=== PATIENT | female | born 1990 | race Caucasian/White ===

== ENCOUNTER 2020-06-26 16:20 | Emergency (ER) | payer OTHER, SELFPAY ==
[2020-06-26 16:36] VITALS: BP 168/93; PULSE 80; RESP 18; TEMP 36.8; O2SAT 100; BMI 25.6
== END 2020-06-26 19:51 | disposition left against medical advice (07) ==
PROVIDERS: Emergency Provider Emergency Medicine; PCP Internal Medicine Medical Oncology
DX: R07.9 Chest pain, unspecified (principal)
CPT/HCPCS: 99281; 99282

== ENCOUNTER 2020-10-26 11:02 | Outpatient (REF) | payer OTHER, SELFPAY ==
[2020-10-26 11:51] LABS: MANUAL DIFF FLAG NO
[2020-10-26 12:02] LABS: Basophils Percent Auto 0.2 % (0-2); Eosinophils Absolute Auto 0.3 X10*3/uL (0.0-0.4); Eosinophils Percent Auto 4.9 % (0-4); Hematocrit 42.3 % (37-47); Hemoglobin 13.9 g/dl (12.0-16.0); Imm Gran Abs Auto 0.01 X10*3/uL (0.00-0.03); Imm Gran Pct Auto 0.2 % (0.0-0.4); Lymphocytes Absolute Auto 2.1 X10*3/uL (1.2-4.9); Lymphocytes Percent Auto 33.9 % (20-40); Mean Corpuscular HGB Conc 32.9 g/dl (31.0-35.0); Mean Corpuscular Hemoglobin 28.6 pg (27.0-33.0); Mean Platelet Volume 10.7 fL (9.4-12.3); Monocytes Absolute Auto 0.4 X10*3/uL (0.1-1.2); Neutrophils Absolute Auto 3.4 X10*3/uL (2.0-8.3); Neutrophils Percent Auto 53.8 % (45-73); Platelet Count 289 X10*3/uL (160-400); Red Blood Count 4.86 X10*6/uL (4.20-5.50); Red Cell Distribution Width 12.9 % (11.0-16.0); White Blood Count 6.3 X10*3/uL (4.8-10.8)
[2020-10-26 12:07] LABS: Alanine Aminotransferase 16 U/L (0-31); Albumin Level 4.1 g/dL (3.5-5.0); Alkaline Phosphatase 50 U/L (39-117); Anion Gap 12 (12-20); Aspartate Amino Transferase 18 U/L (5-31); Bilirubin Total 0.5 mg/dL (0.0-1.0); Blood Urea Nitrogen 11 mg/dL (9-16); Calcium 9.6 mg/dL (8.4-10.2); Carbon Dioxide 25 mmol/L (22-29); Chloride 109 mmol/L (96-108); Cholesterol 223 mg/dL; Estimated Glomerular Filt Rate > 60; Glucose Fasting 91 mg/dL (60-99); HDL Cholesterol 46 mg/dL; LDL Cholesterol Calculated 160 mg/dl; Potassium 5.1 mmol/L (3.3-5.1); Sodium 141 mmol/L (135-145); Total Protein 6.7 g/dL (6.5-8.0); Triglycerides 85 mg/dL
== END 2020-10-26 11:03 | disposition home or self-care (01) ==
LOC: HO.LAB 11:02
PROVIDERS: PCP Internal Medicine Medical Oncology; Visit Provider Internal Medicine Medical Oncology
DX: Z00.00 Encounter for general adult medical examination without abnormal findings (principal); E78.00 Pure hypercholesterolemia, unspecified
CPT/HCPCS: 36415; 80053; 80061; 85025

== ENCOUNTER → 2020-12-08 09:33 | Outpatient (REF) | payer OTHER, SELFPAY ==
--- NOTE | 2020-12-08 09:36 | CA_ITS ---
Transthoracic Echocardiogram Patient (Last, First, Middle): Clair Nuñez, Gender: Female Date of : 1990 Age: 30 Procedure Date: 12/08/2020 Procedure Type: Transthoracic Echocardiogram Location: OP Height: 160.02 cm Weight: 63.5 kg BSA: 1.66 m2 Heart Rate: bpm BP: 123 / 76 mmHg Pulp Mill Operator: [email or web address] Referring MD: Alexander Davila MD Rn Psychiatric: Tom Xiong MD Symptoms: CP, MVP Study Quality: Good ECG Rhythm: Sinus Conclusions: - Essentially normal study Findings Left Ventricle Normal left ventricular size, thickness, and systolic function. The visually estimated ejection fraction is between 65-70%. Spectral Doppler is indicative of a normal filling pattern. Right Ventricle Normal right ventricular cavity size and systolic function. Atria Both atria are normal in size. There is no evidence of interatrial shunt. Aortic Valve Normal aortic valve structure and function. There is no aortic valve stenosis. There is no aortic valve regurgitation. Mitral Valve Normal mitral valve structure and function. There is no mitral valve prolapse. There is trace mitral valve regurgitation. There is no mitral valve stenosis. Pulmonic Valve The pulmonic valve is likely normal. There is trace pulmonic valve regurgitation. Tricuspid Valve Normal tricuspid valve structure. Tricuspid regurgitation envelope is inadequate for calculation of right ventricular systolic pressure. Great Vessels All visible segments of the aorta are normal in size. The pulmonary artery was not well visualized. Venous The inferior vena cava is normal in size and collapses greater than 50% with inspiration. Pericardium/Pleural There is no evidence of pericardial effusion. Prior Study Comparison No prior study available for comparison. Measurements M-Mode Liner Measurements Normals - Women/Men LVIDd: 4.94 3.9-5.3/4.2-5.9 cm LVIDd Index: 2.98 1.9-3.2 cm/m2 LVIDs: 2.86 2.0-3.8 cm M-Mode Volumes LV EDV: 115.00 LV ESV: 31.10 2D Linear Measurements IVSd: 0.81 0.6-0.9/0.6-1.0 cm LVIDd: 4.81 3.9-5.3/4.2-5.9 cm LVIDd Index: 2.90 2.4-3.2/2.2-3.1 cm/m2 LVIDs: 3.38 2.0-3.6 cm LVPWd: 0.77 0.7-1.1 cm Ao Root: 2.50 2.1-3.5 cm LA Diam: 2.80 2.7-3.8/3.0-4.0 cm LAIDs Index: 1.69 1.5-2.3 cm/m2 LV Mass: 154.98 67-162/88-224 g LV Mass Index: 93.36 43-95/49-115 g/m2 LVOT Diam: 1.90 3.0+(-)1.3 cm 2D Systolic Function EF 4C: 62.80 >55% M-Mode Systolic Function FS: 42.10 27-47/25-43% LVEF: 73.00 >55% Mitral Valve MV Pk E: 0.80 MV PK A: 0.31 MV Decel Time: 198.00 E/A: 2.60 E'Lateral: 16.10 E'Medial: 11.20 E/E' Med: 7.10 E/E' Lat: 4.90 PHT: 58.00 MVA PHT: 3.79 Decel [place]: 4.03 Aortic Valve AoV Pk Jose Manuel: 1.11 AoV Pk Grad: 5.00 LVOT LVOT Pk Jose Manuel: 0.94 LVOT Mn Jose Manuel: 0.61 LVOT VTI: 0.20 LVOT Pk Grad: 4.00 LVOT Mn Grad: 2.00 LVOT Diam: 1.90 LVOT Area: 2.84 Diastolic Function MV Pk E: 0.80 MV Pk A: 0.31 E/A: 2.60 E'Medial: 11.20 E/E' Med: 7.10 E' Laterial: 16.10 E/E' Lat: 4.90 Right Ventricle TAPSE (mm): 2.07 Tricuspid Valve RA Press: 3.00 Great Vessels Aorta Ao Root-2D: 2.50 2.0-3.7 cm Ao Asc: 2.80 2.1-3.4 cm Updated in Other Vendor System with Status of Final Tom Xiong MD electronically signed on 12/08/2020 12:37:03 PM with status of Final
== END ==
LOC: HO.CARD 09:33
PROVIDERS: Visit Provider Internal Medicine Medical Oncology
DX: R07.9 Chest pain, unspecified (principal); I34.1 Nonrheumatic mitral (valve) prolapse
CPT/HCPCS: 93306

== ENCOUNTER 2022-03-14 09:30 | Outpatient (REF) | payer OTHER, SELFPAY ==
[2022-03-14 09:44] LABS: MANUAL DIFF FLAG NO
[2022-03-14 10:29] LABS: Basophils Percent Auto 0.3 % (0-2); Eosinophils Absolute Auto 0.2 X10*3/uL (0.0-0.4); Eosinophils Percent Auto 2.7 % (0-4); Imm Gran Abs Auto 0.02 X10*3/uL (0.00-0.03); Imm Gran Pct Auto 0.3 % (0.0-0.4); Lymphocytes Absolute Auto 2.3 X10*3/uL (1.2-4.9); Lymphocytes Percent Auto 36.5 % (20-40); Mean Corpuscular HGB Conc 33.3 g/dl (31.0-35.0); Mean Corpuscular Hemoglobin 28.9 pg (27.0-33.0); Mean Corpuscular Volume 86.6 fL (80.0-98.0); Monocytes Absolute Auto 0.4 X10*3/uL (0.1-1.2); Monocytes Percent Auto 6.2 % (2-11); Neutrophils Absolute Auto 3.5 x10*3/uL (2.0-8.3); Platelet Count 270 X10*3/uL (160-400); Red Blood Count 4.85 X10*6/uL (4.20-5.50); Red Cell Distribution Width 13.1 % (11.0-16.0); White Blood Count 6.4 X10*3/uL (4.8-10.8)
[2022-03-14 11:10] LABS: Alanine Aminotransferase 16 U/L (0-31); Albumin Level 4.2 g/dL (3.5-5.0); Alkaline Phosphatase 51 U/L (39-117); Anion Gap 14 (12-20); Aspartate Amino Transferase 17 U/L (5-31); Bilirubin Total 0.4 mg/dL (0.0-1.0); Blood Urea Nitrogen 12 mg/dL (9-16); Calcium 9.3 mg/dL (8.4-10.2); Carbon Dioxide 24 mmol/L (22-29); Chloride 107 mmol/L (96-108); Cholesterol 220 mg/dL; Estimated Glomerular Filt Rate > 60; Glucose Fasting 93 mg/dL (60-99); HDL Cholesterol 43 mg/dL; LDL Cholesterol Calculated 157 mg/dl; Potassium 4.5 mmol/L (3.3-5.1); Sodium 140 mmol/L (135-145); Total Protein 6.8 g/dL (6.5-8.0); Triglycerides 104 mg/dL
== END 2022-03-14 09:31 | disposition home or self-care (01) ==
LOC: HO.LAB 09:30
PROVIDERS: PCP Internal Medicine Medical Oncology; Visit Provider Internal Medicine Medical Oncology
DX: J45.909 Unspecified asthma, uncomplicated (principal); E78.00 Pure hypercholesterolemia, unspecified; I34.1 Nonrheumatic mitral (valve) prolapse
CPT/HCPCS: 36415; 80053; 80061; 85025

== ENCOUNTER 2024-07-05 10:05 | Outpatient (REF) | payer OTHER, SELFPAY ==
--- OUTSIDE RECORDS SUMMARY | 2024-07-05 10:08 | XMS_ITS | Clinical Summary ---
Author Organization [facility] Address [address] [place] [address] Phone Care Team Providers Care Marketing Compliance Manager Name Role Phone Alexander Davila MD Primary Care Provider [phone] Allergies Active Allergy Reactions Criticality Noted Date Comments Milk Containing Products (Dairy) Low Other Low 12/26/2012 Pollen Extracts Low 12/26/2012 Medications pamabrom 50 mg tablet Take by mouth. Active norgestrel-ethin yl estradioL (LOW-OGESTREL,CR YSELLE) 0.3-30 mg-mcg per tablet Take 1 tablet by mouth 1 (one) time each day. 84 tablet 3 01/17/2024 5 Active Active Problems Problem Noted Date Diagnosed Date Chest pain 02/21/2021 Overview (11/30/2023): Last Assessment & Plan: Patient presents with chest discomfort with 3 out of 5 respiratory coronary disease. She is stopped doing any exercise whatsoever because she is afraid of the symptoms. The symptoms really are not classic for angina. But given her risk factors which puts her at an intermediate risk we will schedule stress echo. I told if that is normal she will go back to exercising at the pain most likely is noncardiac. She did have a history of lactose intolerance in the past and is not avoiding lactose I suspect this may be GI referred pain I told her that if the stress test is normal she may want to experiment with stopping dairy to see if that stops the symptoms LGSIL on Pap smear of cervix 12/27/2012 Overview (11/30/2023): 12/27/2012 : Outside pap on 12/19 at [facility]. 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 Plan: Colpo - TESHA 1 Repeat pap 202109/15/2021 PAP LSIL, ASC-H, + HPV, ( neg 16/18/45) Colpo benign- repeat pap in one year Immunizations Name Administration Dates Next Due Tdap Tetanus diptheria acell ular pertussis (Boostrix; Adacel) 7yo and older 04/22/2013 Surgical History Surgery Date Site/Laterality Comments WISDOM TOOTH EXTRACTION 02/12/2011 PROCEDURE: HISTORICAL WISDOM TEETH EXTRACTION SECTION 04/12/2013 PROCEDURE: HISTORICAL OTHER SURGICAL HISTORY 02/2018 PROCEDURE: HISTORY OTHER; COMMENT: Both ears pinned back Medical History Medical History Date Comments Asthma DX:Asthma Allergies DX:Allergies Infectious mononucleosis DX:Infe ctious mononucleosis; COMMENT: age 16 ADD (attention deficit disorder) DX:ADD (attention deficit disorder) Positive PPD DX:Positive PPD Chlamydia infection DX:Chlamydia infection Family History Medical History Relation Name Comments Coronary artery disease Father Card iomyopathy Heart attack Father Hypertension Father Other: High Cholesterol Father Diabetes Maternal Grandmother Breast cancer Neg Hx Colon cancer Neg Hx Ovarian cancer Neg Hx Prostate cancer Neg Hx Uterine cancer Neg Hx Relation Name Status Comments Brother Alive Father (Age 57) Unknown - no autopsy completed Maternal Grandfather Maternal Grandmother Mother Alive Other Child Alive Paternal Grandfather Paternal Grandmother Alive Social History Tobacco Use Types Packs/Day Years Used Date Smoking Tobacco: Former Cigarettes Q uit: 12/27/2008 Smokeless Tobacco: Never Tobacco Cessation:Counseling Given: Not Answered Alcohol Use Standard Drinks/Week Comments Yes 0 (1 standard drink = 0.6 oz pur e alcohol) Comments No Sex and Gender Information Value Date Recorded Sex Assigned at Not on file Legal Sex Female 2:36 AM EST Gender Identity Not on file Sexual Orientation Not on file Occupation Industry Job Start Date Job End Date teacher Not on file Not on file Not on file Obstetrics History Para Term AB IAB SAB Ectopic Multiple Livin g Live Births 1 1 1 1 1 Date Outcome GA Total Labor Labor/2nd/3rd Weight Sex Type Anes PTL Syeda A1 A5 Name Clin 2013 35w 0d 2700 g (95.2 oz) F CS-Un spec Genera l Y Livin g 3 7 Rigo Ferreira Delivery Location:[facility] Comments:Eclampsia Last Filed Vital Signs Vital Sign Reading Time Taken Comments Blood Pressure 126/88 01/17/2024 3:23 PM EST Pulse 71 01/17/2024 3:23 PM EST Temperature - - Respiratory Rate - - Oxygen Saturation - - Inhaled Oxygen Concentration - - Weight 64.4 kg (142 lb) 01/17/2024 3:23 PM EST Height 160 cm (5' 3 ) 01/17/2024 3:23 PM EST Body Mass Index 25.15 01/17/2024 3:23 PM EST Plan of Treatment Health Maintenance Due Date Last Done Comments Depression Screening 01/15/2022 HIV Screening 01/15/2022 Hepatitis C Screening 01/15/2022 Social Influencers of Health Screening 01/15/2022 DTaP,Tdap,and Td Vaccines (9 - Td or Tdap) 04/23/2023 04/22/2013, 05/02/2006, 12/15/1998, Additional history exists COVID-19 Vaccine ( season) 2023 Influenza Vaccine (Season Ended) 2024 Cervical Cancer Screening: HPV 01/16/2029 01/17/2024, 01/17/2024, 09/15/2021 HIB Vaccines Completed 10/10/1989 IPV Vaccines Completed 06/20/1993, 11/13, 1988, Additional history exists Hepatitis B Vaccines Completed 06/13/2000, 01/12/2000, 12/08/1999 MMR Vaccines Completed 10/08/2000, 08/22/1989 Meningococcal ACWY Vaccine Completed 05/02/2006 Hepatitis A Vaccines Aged Out 02/17/2009, 02/16/19 10 No longer eligible based on patient's age to complete this topic HPV Vaccines Aged Out No longer eligi ble based on patient's age to complete this topic Meningococcal B Vaccine Aged Out No l onger eligible based on patient's age to complete this topic Pneumococcal Vaccine: Pediatrics (0 to 5 Years) and At-Risk Patients (6 to 64 Years) Aged Out No longer eligible based on patient's age to complete this topic RSV Immunization Patients Under 20 months Aged Out No longer eligible based on patient's age to complete this topic Varicella Vaccines Aged Out No longer eligible based on patient's age to complete this topic Procedures Procedure Name Priority Date/Time Associated Diagnosis Comments HPV WITH REFLEX GENOTYPE Routine 01/17/2024 3:34 PM EST Encounter for well woman exam with routine gynecological exam Screening for cervical cancer LGSIL of cervix of undetermined significance from Last 3 Months or Most Recently Relevant to Health Maintenance Results * (ABNORMAL) HPV with reflex genotype (01/17/2024 3:34 PM EST) HPV Positive( A) Negative LAB MICROBIOLOGY METHOD 01/18/2024 1:48 PM EST [facility] Brushing/Spatula Cervix uteri structure / Unknown 01/17/2024 3:34 PM EST 01/18/2024 7:54 AM EST us Sherry [facility] MOLECULAR DIAGNOSTICS ORD ERABLES Final Result [facility] [address] [place] [address], from Last 3 Months or Most Recently Relevant to Health Maintenance Insurance [facility] MEDICAID - [place] Care Teams Marketing Compliance Manager Relationship Specialty Start Date End Date Alexander Davila MD [address] [address] PCP - General 01/29/13
[2024-07-05 10:16] LABS: MANUAL DIFF FLAG NO
[2024-07-05 10:25] LABS: Basophils Percent Auto 0.5 % (0-2); Eosinophils Absolute Auto 0.1 X10*3/uL (0.0-0.4); Eosinophils Percent Auto 2.5 % (0-4); Hematocrit 41.3 % (37.0-47.0); Hemoglobin 14.3 g/dl (12.0-16.0); Imm Gran Abs Auto 0.01 X10*3/uL (0.00-0.03); Imm Gran Pct Auto 0.2 % (0.0-0.4); Lymphocytes Absolute Auto 2.7 X10*3/uL (1.2-4.9); Lymphocytes Percent Auto 46.5 % (20-40); Mean Corpuscular HGB Conc 34.6 g/dl (31.0-35.0); Mean Corpuscular Hemoglobin 29.2 pg (27.0-33.0); Mean Corpuscular Volume 84.3 fL (80.0-98.0); Mean Platelet Volume 9.7 fL (9.4-12.3); Monocytes Absolute Auto 0.4 X10*3/uL (0.1-1.2); Monocytes Percent Auto 6.7 % (2-11); Neutrophils Absolute Auto 2.5 x10*3/uL (2.0-8.3); Neutrophils Percent Auto 43.6 % (45-73); Platelet Count 315 X10*3/uL (160-400); White Blood Count 5.7 X10*3/uL (4.8-10.8)
[2024-07-05 10:54] LABS: Alanine Aminotransferase 27 U/L (0-31); Albumin Level 4.4 g/dL (3.5-5.0); Alkaline Phosphatase 64 U/L (39-117); Anion Gap 13 (12-20); Aspartate Amino Transferase 24 U/L (5-31); Bilirubin Total 0.4 mg/dL (0.0-1.0); Blood Urea Nitrogen 13 mg/dL (9-16); Carbon Dioxide 26 mmol/L (22-29); Chloride 106 mmol/L (96-108); Cholesterol 257 mg/dL (<200); Estimated Glomerular Filt Rate > 60; Glucose Random 102 mg/dL (60-115); HDL Cholesterol 42 mg/dL (>40); LDL Cholesterol Calculated 196 mg/dL (<100); Potassium 4.3 mmol/L (3.3-5.1); Sodium 141 mmol/L (135-145); Total Protein 7.3 g/dL (6.5-8.0); Triglycerides 96 mg/dL (<150)
== END 2024-07-05 10:06 | disposition home or self-care (01) ==
LOC: HO.LAB 10:05
PROVIDERS: PCP Internal Medicine Medical Oncology; Visit Provider Internal Medicine Medical Oncology
DX: B34.9 Viral infection, unspecified (principal); E66.3 Overweight
CPT/HCPCS: 36415; 80053; 80061; 85025